=== PATIENT | male | born 1960 | race Caucasian/White ===

== ENCOUNTER 2018-09-19 17:55 | Emergency (ER) | payer BC, OTHER ==
--- NOTE | 2018-09-19 18:52 | EDM.PDOC ---
ED HPI GENERAL MEDICAL PROBLEM - General Chief Complaint: Abdominal Pain Stated Complaint: LOWER ABDOMINAL PAIN Time Seen by Provider: 09/19/18 18:51 Source of Information: Reports: Patient - History of Present Illness INITIAL COMMENTS - FREE TEXT/NARRATIVE: Patient is here today accompanied by his , Annalisa, for evaluation of a dull pain to the lower mid-abdomen 3 days and excessive gas. He feels his bowel movements have been softer than normal, but not loose. History of heartburn and GERD but has not had this recently. Patient has not had any nausea and vomiting. He is eating and drinking well. He has scalloped potatoes and ham for dinner tonight and states that this did not change symptoms. Patient states that he has not traveled recently. He has no ill contacts, his is feeling fine and they are the only 2 at home. Nobody has been ill at his work. No changes in his diet. Patient reports that he had a colonoscopy approximately 3 years ago, there were polyps found and he is due to have this repeated 5 years after the last. Patient reports being on amlodipine for his hypertension. His PCP is Dr. Fabian at [facility]. Lower Abdomen Pain Score (Numeric/FACES): 7 - Related Data Allergies Allergy/AdvReac Type Severity Reaction Status Date / Time No Known Allergies Allergy Verified 09/19/18 18:30 Home Meds: Home Meds Aspirin [Ecotrin] 81 mg PO DAILY 09/19/18 [History] amLODIPine Besylate [Amlodipine Besylate] 5 mg PO DAILY 09/19/18 [History] Past Medical History HEENT History: Reports: Impaired Vision Other HEENT History: wears eyeglasses. Cardiovascular History: Reports: Hypertension Gastrointestinal History: Reports: Other (See Below) Other Gastrointestinal History: was Dx'd with Diverticulitis years ago but no testing was done. Musculoskeletal History: Reports: Fracture Neurological History: Reports: Migraines Dermatologic History: Reports: Eczema - Infectious Disease History Infectious Disease History: Reports: Chicken Pox, Mumps - Past Surgical History HEENT Surgical History: Reports: Other (See Below) Other HEENT Surgeries/Procedures: wisdom teeth removed. Social & Family History - Tobacco Use Smoking Status *Q: Never Smoker Second Hand Smoke Exposure: No - Caffeine Use Caffeine Use: Reports: Coffee - Recreational Drug Use Recreational Drug Use: No ED ROS GENERAL - Review of Systems Review Of Systems: See Below Constitutional: Denies: Fever, Chills, Malaise, Weakness, Fatigue, Diaphoresis, Decreased Appetite HEENT: Reports: No Symptoms Respiratory: Reports: No Symptoms Cardiovascular: Reports: No Symptoms GI/Abdominal: Reports: Abdominal Pain (Mid lower abdominal pain), Flatus. Denies: Decreased Appetite, Distension, Hematemesis, Hematochezia, Melena, Nausea, Vomiting Musculoskeletal: Reports: No Symptoms Skin: Reports: No Symptoms Neurological: Reports: No Symptoms Psychiatric: Reports: No Symptoms ED EXAM, GI/ABD - Physical Exam Exam: See Below Exam Limited By: No Limitations General Appearance: Alert, WD/WN, No Apparent Distress Ears: Normal External Exam, Normal Canal, Hearing Grossly Normal, Normal TMs Nose: Normal Inspection, Normal Mucosa Throat/Mouth: Normal Inspection, Normal Oropharynx Head: Atraumatic, Normocephalic Neck: Normal Inspection Respiratory/Chest: No Respiratory Distress, Lungs Clear, Normal Breath Sounds Cardiovascular: Regular Rate, Rhythm, No Murmur, No Rub GI/Abdominal Exam: Normal Bowel Sounds, Soft, Tender (Mild, mid abdominal pain slightly right of midline.), Other (No tenderness to McBurney's point. Negative psoas and Rovsing sign.). No: Guarding, Rigid, Rebound Extremities: Normal Inspection, Normal Range of Motion Neurological: Alert, Oriented Psychiatric: Normal Affect, Normal Mood Skin Exam: Warm, Dry, Intact Course - Vital Signs Last Recorded V/S: Last Vital Signs Temp 97.6 F 09/19/18 18:25 Pulse 68 09/19/18 18:25 Resp 18 09/19/18 18:25 BP 142/89 H 09/19/18 18:25 Pulse Ox 96 09/19/18 18:25 - Orders/Labs/Meds Orders: Active Orders 24 hr Category Date Time Status Abdomen 2V AP Flat Upright [CR] Stat Exams 09/19/18 18:52 Taken Labs: Laboratory Tests 09/19/18 09/19/18 09/19/18 Range/Units 19:43 20:05 20:05 WBC 6.54 (4.23-9.07) K/mm3 RBC 4.90 (4.63-6.08) M/mm3 Hgb 14.5 (13.7-17.5) gm/L Hct 44.3 (40.1-51.0) % MCV 90.4 (79.0-92.2) fl MCH 29.6 (25.7-32.2) pg MCHC 32.7 (32.2-35.5) g/dl RDW Std Deviation 43.5 (35.1-43.9) fL Plt Count 255 (163-337) K/mm3 MPV 9.1 L (9.4-12.3) fl Neutrophils % (Manual) 48 (40-60) % Band Neutrophils % 0 (0-10) % Lymphocytes % (Manual) 48 H (20-40) % Atypical Lymphs % 0 % Monocytes % (Manual) 3 (2-10) % Eosinophils % (Manual) 1 (0.8-7.0) % Basophils % (Manual) 0 L (0.2-1.2) Platelet Estimate Adequate RBC Morph Comment Normal Sodium 142 (136-145) mEq/L Potassium 3.9 (3.5-5.1) mEq/L Chloride 104 (98-107) mEq/L Carbon Dioxide 29 (21-32) mEq/L Anion Gap 12.9 (5-15) BUN 22 H (7-18) mg/dL Creatinine 1.0 (0.7-1.3) mg/dL Est Cr Clr Drug Dosing 92.11 mL/min Estimated GFR (MDRD) > 60 (>60) mL/min BUN/Creatinine Ratio 22.0 H (14-18) Glucose 91 (74-106) mg/dL Calcium 9.3 (8.5-10.1) mg/dL Total Bilirubin 0.7 (0.2-1.0) mg/dL AST 32 (15-37) U/L ALT 50 (16-63) U/L Alkaline Phosphatase 42 L (46-116) U/L C-Reactive Protein < 0.2 (<1.0) mg/dL Total Protein 7.7 (6.4-8.2) g/dl Albumin 3.8 (3.4-5.0) g/dl Globulin 3.9 gm/dL Albumin/Globulin Ratio 1.0 (1-2) Lipase 104 (73-393) U/L Urine Color Light yellow (Yellow) Urine Appearance Cloudy H (Clear) Urine pH 8.0 (5.0-8.0) Ur Specific [place] 1.020 (1.005-1.030) Urine Protein Trace H (Negative) Urine Glucose (UA) Negative (Negative) Urine Ketones Trace H (Negative) Urine Occult Blood Negative (Negative) Urine Nitrite Negative (Negative) Urine Bilirubin Negative (Negative) Urine Urobilinogen 0.2 (0.2-1.0) Ur Leukocyte Esterase Negative (Negative) Urine RBC Not seen (0-5) /hpf Urine WBC 0-5 (0-5) /hpf Ur Epithelial Cells 0-5 (0-5) /hpf Amorphous Sediment Many H (NOT SEEN) /hpf Urine Bacteria Rare (FEW) /hpf Urine Mucus Not seen (FEW) /hpf - Re-Assessments/Exams Free Text/Narrative Re-Assessment/Exam: Patient declines pain medication. Not acute abdomen on exam. Abdominal x-ray demonstrates mild amount of increased retained stool. No air- fluid levels. 09/19/18 19:49 WBC 6540 with 40% neutrophils and no bands. Electrolytes within normal limits. Anion gap of 12.9. CRP is <0.2. Will discharge patient home. Recommend that he resume his healthier high-fiber diet and started daily probiotic. It turns out that they're remodeling her kitchen so he has not been eating healthy lately. He will do a colon cleanse with magnesium citrate, one half bottle and then repeat in 12 hours. He will follow-up with his PCP or return to the emergency department for any new or worsening symptoms. 09/19/18 20:55 Departure - Departure Time of Disposition: 20:53 Disposition: Home, Self-Care 01 Condition: Good Clinical Impression: Lower abdominal pain - Discharge Information Referrals: Angel Mohamud MD [Primary Care Provider] - Forms: ED Department Discharge Additional Instructions: You were evaluated in the emergency department for abdominal pain. Your lab work was all normal. X-ray demonstrated a mild amount of retained stool. I recommend a colon cleanse with one half magnesium citrate, you may repeat this in 12 hours. Start a probiotic on a daily basis. Resume your healthy, high fiber diet. Follow-up with your PCP within the next week if symptoms not completely resolved or return to the emergency room for any new or worsening symptoms. - My Orders Last 24 Hours: My Active Orders 09/19/18 18:52 Abdomen 2V AP Flat Upright [CR] Stat - Assessment/Plan Last 24 Hours: My Active Orders 09/19/18 18:52 Abdomen 2V AP Flat Upright [CR] Stat
--- NOTE | 2018-09-20 06:42 | CR ---
Abdomen: Supine and upright views of the abdomen were obtained. Comparison: No previous study. Slight degenerative change is noted within the spine. Bowel gas pattern is normal. No abnormal calcifications or soft tissue abnormality is seen. No free air is seen. Impression: 1. Incidental findings. Nothing acute is seen. Diagnostic code #2
== END 2018-09-19 21:10 | disposition home or self-care (01) ==
LOC: JD.ED 17:55
DX: R10.30 Lower abdominal pain, unspecified (principal); I10 Essential (primary) hypertension; Z79.899 Other long term (current) drug therapy; Z79.82 Long term (current) use of aspirin
CPT/HCPCS: 36415; 74019; 74019-26; 80053; 81001; 83690; 85007; 85027; 86140; 99282; 99284